=== PATIENT | male | born 1990 | race Caucasian/White ===

== ENCOUNTER 2023-11-08 15:52 | Outpatient (AMB) | payer OTHER, SELFPAY ==
--- NOTE | 2023-11-08 15:54 | A.OFFPC_ITS ---
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 Accompanied by: Self / Same As Patient Allergies amoxicillin Allergy (Unknown, Verified 11/08/23 16:57) sweats bupropion [From Wellbutrin] Allergy (Unknown, Verified 11/08/23 16:57) dizzy Medication List - Last Reconciled 11/08/23 by Patrice Ashley PA-C venlafaxine ER 150 mg PO DAILY 90 days Tobacco use date assessed: 11/08/23 Dental Screening Dental Screen Date: 11/08/23 Did you have a dental visit in the last 12 months?: No Did you have a dental problem in the last 6 months where you did not have access to dental care?: Yes Was dental information given to patient?: Yes HPI pe HPI Details Patient is a 33-year-old male here today for routine annual physical. Patient's past medical history significant for generalized anxiety disorder , tobacco use disorder allergic rhinitis, obesity. .. TIM: Anxiety has been alot better since taking venlafaxine. He reports he has drastically reduced the amount of energy drinks he has been drinking lately. .. Alcohol use disorder: He admits to drinking excessive amount of alcohol in the afternoons. He admits to 16-18 nips per day. He does admit to a family history of alcoholism. He reports he has stopped drinking for few weeks recently and did not experience any seizure-like activity or major withdrawal symptoms He is interested in weaning the amount of drinking he is doing an eventually stopped drinking. PLAN: Will start naltrexone and reduce slowly the amount of drinking he is doing. .. Tobacco use disorder: Has been smoking about a pack of cigarettes per day and understands he does need to quit. He is interested in starting nicotine gum to help him with nicotine cravings. .. Vaccines: Up-to-date with pneumonia and tetanus, does not usually get flu vaccines. Laboratory Tests 08/08/19 08/18/19 09:05 09:30 RBC 4.52 L Hgb 16.0 MCV 101.6 H Potassium 5.3 H Fasting Glucose 120 H Triglycerides 103 LDL Cholesterol, C alc 88 PFSH Surgical History No pertinent past surgical history Family History Father Depression with anxiety Hypertension Mother Multiple sclerosis Maternal Grandmother Cancer Maternal Grandfather Colon cancer Paternal Grandfather Stroke Social History (Updated 11/08/23 @ 17:01 by Patrice Ashley PA-C) Housing: House Alcohol intake: current Alcohol intake frequency: a few times a month Alcohol type: beer Patient Tobacco Use Status: Current everyday Tobacco user Tobacco use type: Cigarette Cigarette Packs Per Day: 1 Cigarettes Per Day: 15 e-Cigarette/Vaping Use: Never Used Substance Use Type: Marijuana service: No Current occupational status: unemployed Cognitive needs: No Hearing needs: No Vision needs: No Questionnaire PHQ-9 Over the last 2 weeks, how often have you been bothered by any of the following problems? 1. Little interest or pleasure in doing things: several days 2. Feeling down, depressed, or hopeless: several days 3. Trouble falling or staying asleep, or sleeping too much: nearly every day 4. Feeling tired or having little energy: more than half the days 5. Poor appetite or overeating: more than half the days 6. Feeling bad about yourself - or that you are a failure or have let yourself or your family down: more than half the days 7. Trouble concentrating on things, such as reading the newspaper or watching television: several days 8. Moving or speaking so slowly that other people could have noticed. Or the opposite - being so fidgety or restless that you have been moving around a lot more than usual: not at all 9. Thoughts that you would be better off or of hurting yourself in some way: not at all Total score: 12 Depression Screening Interpretation: Positive Depression Screening Follow-up: Existing condition and Declines treatment Depression Screening Done: Yes 44445 - PHQ-9 Billing: Yes Source: Developed by Drs. Terrance Gomez, Shital Wright, Kevin Cueva and colleagues, with an educational kimber from [employer]. Thrive Questionnaire Date Thrive assessed: 11/08/23 I am a: Patient What is your living situation today?: I have a steady place to live Within the past 12 months, did the food you bought not last and you didn't have the money to get more?: Never true Within the past 12 months, did you worry whether your food would run out before you got money to buy more?: Never true Do you have trouble paying for medicines?: No Do you have trouble getting transportation to medical appointments?: No Do you have trouble paying your heating and electricity bill?: No Do you have trouble taking care of your child, family member or friend?: No Do you have trouble with day-to-day activities such as bathing, preparing meals, shopping, managing finances, etc.?: No Are you currently unemployed and looking for a job?: No Are you interested in more education?: No Please select the resources that you would like help with: None Currently or been in a relationship where the following occur: No concerns reported THRIVE Score: 0 AUDIT C Alcohol Use Questionnaire (AUDIT-C) 1. How often do you have a drink containing alcohol?: 4 or more times a week 2. How many drinks containing alcohol do you have on a typical day when you are drinking?: 10 or more 3. How often do you have six or more drinks on one occasion?: Daily or almost daily Total Score: 12 TIM-7 AMB Questionnaire TIM-7 Date TIM - 7 assessed: 11/08/23 Feeling nervous, anxious, or on edge: 1 = Several days Not being able to stop or control worryin = More than half the days Worrying too much about different things: 2 = More than half the days Trouble relaxin = Several days Being so restless that it is hard to sit still: 1 = Several days Becoming easily annoyed or irritable: 2 = More than half the days Feeling afraid as if something awful might happen: 0 = Not at all Total TIM-7 score (0-4 normal; 5-9 mild; 10-14 moderate; 15-21 severe): 9 Source: Developed by Drs. Terrance Gomez, Shital Wright, Kevin Cueva and colleagues, with an educational kimber from [employer] TIM-7 Assessment Billing TIM-7 Assessment Tool: TIM-7 Assessment 16686 Review of Systems Const Denies body aches, Denies chills, Denies excessive sweating, Denies fatigue, Denies fever(s) and Denies headache(s) Eyes Denies blurry vision ENT Denies dysphagia, Denies vertigo, Denies dizziness, Denies headache(s), Denies hearing loss and Denies tinnitus Card Denies chest pain, Denies chest pain with activity, Denies syncope, Denies irregular heart rhythm and Denies dyspnea Resp Denies chest congestion, Denies cough, Denies hemoptysis, Denies dyspnea and Denies wheezing GI Denies abdominal pain, Denies melena, Denies hematochezia, Denies coffee ground emesis, Denies dysphagia, Denies diarrhea, Denies nausea and Denies vomiting Denies difficulty urinating, Denies dysuria, Denies urinary frequency, Denies urinary hesitancy and Denies urinary urgency Musc Denies arthralgias, Denies limited range of motion, Denies muscle cramps and Denies muscle weakness Skin/Breast Denies rash and Denies skin ulcer Neuro Denies Abnormal speech present, Denies confusion, Denies vertigo, Denies dizziness, Denies syncope, Denies headache(s), Denies memory loss and Denies s eizure-like activity Psych Denies anxiety, Denies confusion, Denies depression, Denies memory loss, Denies panic attacks and Denies paranoia Endo Denies excessive sweating, Denies fatigue, Denies flushing, Denies polydipsia and Denies polyuria Aller/Immun Denies wheezing Physical exam (Primary Care) Vital Signs: Last Vital Signs Pulse 98 11/08/23 16:22 BP 126/76 11/08/23 16:22 Pulse Ox 98 11/08/23 16:22 Oxygen Delivery Method Room Air 11/08/23 16:22 BMI result Body Mass Index 38.3 Tobacco/Smoking Status: Tobacco use Status Tobacco use date assessed 11/08/23 11/08/23 16:34 Patient Tobacco Use Status Current everyday Tobacco 11/08/23 17:01 Tobacco use type Cigarette 11/08/23 17:01 e-Cigarette/Vaping Use Never Used 11/08/23 17:01 Are you ready to quit: Yes Tobacco cessation counseling provided: Yes Items discussed: Nicotine replacement Relapse Prevention: discussed the importance of a supportive environment, discussed negative mood or depression after quitting, weight gain after smoking is common and discussed dietary, exercise and/or lifestyle changes Number of minutes spent counselin CPT code: 47572 - 4-10 Minutes PHQ-9: PHQ-9 Score PHQ-9: Total score 12 11/08/23 17:04 Depression Screening Interpretation: Positive Depression Screening Follow-up: Existing condition and Declines treatment Thrive Assessment: Date of Thrive Assessment Date Thrive assessed 11/08/23 11/08/23 16:34 Currently or been in a relationship where the following occur: No concerns reported Const General: cooperative, comfortable, no acute distress, alert and awake; No confusion Orientation/consciousness: oriented to person, oriented to place, patient oriented x3 and No confusion HENMT Other: VERY POOR DENTITION Head: Yes normocephalic Ears: external ears normal and TM's normal bilaterally Face and sinus: No sinus tenderness Mouth: Normal oral and palatal mucosa present and tongue normal Teeth and gingiva: dentition normal and gingiva normal Throat: Yes posterior oropharynx normal, Yes tonsils normal and Yes uvula midline Eyes Conjunctivae: conjunctivae normal Sclerae: sclerae normal Pupils: Equal, round and reactive pupils present EOM: EOMs intact bilaterally Direct Ophthalmoscopy: No no photophobia Neck Neck: Yes no lymphadenopathy, No tender and Yes no JVD Thyroid: Thyroid normal Carotids: no bruits Chest Chest palpation & inspection: no tenderness Resp Effort & Inspection: normal respiratory effort, no audible wheezes, not labored and no stridor Auscultation: no crackles, no rales, no rhonchi and no wheezes Cardio Jugular venous distension: no JVD Rate: regular rate, not bradycardic and not tachycardic Rhythm: regular rhythm Bruits: no carotid bruits Peripheral pulses: Peripheral pulses 2+ throughout GI Inspection: Yes normal to inspection, No abdominal wall ecchymosis and No visible herniation Palpation (GI): Soft to palpation, nontender, no guarding, not rigid and No hepatosplenomegaly present Auscultation: normoactive bowel sounds General: Yes no CVA tenderness Back/Spine/Pelvis Back: no CVA tenderness and No back tenderness Cervical Spine: cervical ROM normal Thoracic/Lumbar Spine: thoracic and lumbar spine normal to inspection, straight leg raise negative bilaterally, No thoraco-lumbar ROM limited and No lumbar spinal tenderness Skin Lesions: no lesions Rashes: no rashes Wounds: no wounds Neuro General: oriented to person, oriented to place, patient oriented x3, CN's II-XI intact bilaterally and No confusion Cranial nerves: Yes Equal, round and reactive pupils present and Yes Normal accommodation reflex present Cognition (Neuro): normal cognition Speech: No Abnormal speech present Gait exam (Neuro): Normal gait present Motor exam (neuro): 5/5 motor strength present throughout Extrem Right upper extremity: full ROM; no cyanosis Left upper extremity: full ROM; no cyanosis Right lower extremity: no edema Left lower extremity: no edema Psych Appearance: grossly normal Mental Status: mental status grossly normal Affect: normal affect Attitude: cooperative Thought process: Normal thought process present Assessment and Plan Assessment & Plan (1) Annual physical exam: Code(s): Z00.00 - Encounter for general adult medical examination without abnormal findings (2) Screening for diabetes mellitus (DM): Code(s): Z13.1 - Encounter for screening for diabetes mellitus (3) Smoker: Code(s): F17.200 - Nicotine dependence, unspecified, uncomplicated Plan: Spent 4 minutes discussing smoke cessation today in office. He does understand he needs to quit smoking and is willing to trial nicotine gum to help reduce his smoking cravings. (4) Impaired glucose metabolism: Code(s): R73.09 - Other abnormal glucose Plan: Most recent fasting blood sugar elevated, A1c appropriate. Will continue to follow fasting blood sugar and A1c. Again advised weight reduction and better e ating habits and reduction of energy drink consumption. (5) Alcohol dependence: Code(s): F10.20 - Alcohol dependence, uncomplicated Qualifiers: Substance use status: uncomplicated Qualified Code(s): F10.20 - Alcohol dependence, uncomplicated Plan: As per HPI patient does admit to drinking excessively. He does admit to consuming 16-18 nips per night. He is willing to try medication to help him with alcohol cravings and to quit alcohol altogether. He will slowly reduce the amount of alcohol he is consuming. We did discuss the possibility of referral to addiction treatment though would like to hold off on this for now and see if he can stop drinking on his own. (6) Anxiety: Code(s): F41.9 - Anxiety disorder, unspecified Plan: Patient's TIM-7 score positive for anxiety which has been existing condition for him. He feels the venlafaxine at current dose has been effective for him. He is not interested in mental health therapist or psychiatrist at this time. (7) MDD (major depressive disorder), recurrent episode, moderate: Code(s): F33.1 - Major depressive disorder, recurrent, moderate Plan: Patient's PHQ-9 score positive for depression which has been existing condition for him. Continues on SNRI with good effect. He is not interested in mental health therapy or psychiatry at this time. Unfortunately has been drinking excessively as part of a habit and boredom per patient. He will like to try a new medication to help him quit drinking. Orders: Orders 2 [facility] [place]. Panel Fast 11/08/23 R73.09 - Other abnormal glucose Complete Blood Count no Diff 11/08/23 F10.20 - Alcohol dependence, uncomp licated Ethanol 11/08/23 F10.20 - Alcohol dependence, uncomplicated Hemoglobin A1c 11/08/23 R73.09 - Other abnormal glucose Medications: New naltrexone 50 mg PO DAILY 30 tabs 3RF 30 days F10.20 - Alcohol dependence, uncomplicated nicotine (polacrilex) 2 mg buccal Q2H PRN 110 ea 0RF nicotine cravings 15 days F17.200 - Nicotine dependence, unspecified, uncomplicated Coding Level of Care Code Est Pt Prev Care 18-39y(07024) Diagnoses Annual physical exam Z00.00 Screening for diabetes mellitus (DM) Z13.1 Smoker F17.200 Impaired glucose metabolism R73.09 Uncomplicated alcohol dependence F10.20 Substance use status: uncomplicated Anxiety F41.9 MDD (major depressive disorder), recurrent episode, moderate F33.1 Additional Codes TIM-7 Assessment Billing - TIM-7 Assessment Tool: TIM-7 Assessment 34515 ([id number]) Vital Signs *Quality* - CPT code: 73523 - 4-10 Minutes ([id number])
[2023-11-08 16:22] VITALS: BP 126/76; PULSE 98; O2SAT 98; BMI 38.3
== END 2023-11-08 17:14 | disposition home or self-care (01) ==
PROVIDERS: PCP Physician Assistant; Visit Provider Physician Assistant
DX: Z00.00 Encounter for general adult medical examination without abnormal findings (principal); F10.20 Alcohol dependence, uncomplicated; F33.1 Major depressive disorder, recurrent, moderate; Z13.1 Encounter for screening for diabetes mellitus; F17.210 Nicotine dependence, cigarettes, uncomplicated; R73.09 Other abnormal glucose; F41.9 Anxiety disorder, unspecified
CPT/HCPCS: 99395; 99406

== ENCOUNTER 2024-11-14 15:55 | Outpatient (AMB) | payer OTHER, SELFPAY ==
--- NOTE | 2024-11-14 15:58 | A.OFFPC_ITS ---
Vital Signs 11/14/24 16:01 Height 5 ft 8 in Weight 264 lb BMI 40.1 BP 110/54 L Blood Pressure Location Lt brachial Position Sitting Pulse 97 Pulse Source Pulse Oximeter Temp 97.1 F Temp Source Temporal Artery Scan Pulse Oximetry (%) 99 Oxygen Delivery Method Room Air Intake Visit Reasons: PE [employer]ter Required: No Accompanied by: Self / Same As Patient Allergies amoxicillin Allergy (Unknown, Verified 11/14/24 16:00) sweats bupropion (From Wellbutrin) Allergy (Unknown, Verified 11/14/24 16:00) dizzy Tobacco use date assessed: 11/14/24 Dental Screening Dental Screen Date: 11/14/24 Did you have a dental visit in the last 12 months?: No Did you have a dental problem in the last 6 months where you did not have access to dental care?: No Was dental information given to patient?: No HPI PE HPI Details The patient is a 34-year-old male presenting for a annual physical and management of alcohol use disorder. Alcohol dependency: He reports consuming 15 to 20 nips of alcohol daily, which has become unmanageable, and has attempted to wean off alcohol without success. There is concern about potential withdrawal symptoms, including seizures, due to a family history of seizures in his mother. The patient has been prescribed naltrexone previously but discontinued it due to continued alcohol consumption and concerns about its effectiveness. He experiences significant hand tremors and anxiety, for which hydroxyzine and clonidine have been suggested as comfort medications. Class 3 obesity: The patient has gained 12 pounds since his last visit, with a current weight of 264 pounds. His blood pressure is noted to be on the lower end, and his heart rate is 97 bpm. The patient has a history of nicotine dependence and is currently trying to quit smoking using nicotine gum and vaping. He is still smoking, and the use of nicotine replacement therapy, such as patches, has been discussed. [facility] Surgical History No pertinent past surgical history Family History Father Depression with anxiety Hypertension Mother Multiple sclerosis Maternal Grandmother Cancer Maternal Grandfather Colon cancer Paternal Grandfather Stroke Social History (Updated 11/14/24 @ 16:47 by Patrice Ashley PA-C) Housing: House Alcohol intake: current Alcohol intake frequency: a few times a month Alcohol type: beer Patient Tobacco Use Status: Current everyday Tobacco user Tobacco use type: Cigarette Cigarette Packs Per Day: 1 Cigarettes Per Day: 15 e-Cigarette/Vaping Use: Never Used Substance Use Type: Marijuana service: No Current occupational status: unemployed Cognitive needs: No Hearing needs: No Vision needs: No Questionnaire PHQ-9 Over the last 2 weeks, how often have you been bothered by any of the following problems? 1. Little interest or pleasure in doing things: several days 2. Feeling down, depressed, or hopeless: several days 3. Trouble falling or staying asleep, or sleeping too much: nearly every day 4. Feeling tired or having little energy: more than half the days 5. Poor appetite or overeating: several days 6. Feeling bad about yourself - or that you are a failure or have let yourself or your family down: not at all 7. Trouble concentrating on things, such as reading the newspaper or watching television: several days 8. Moving or speaking so slowly that other people could have noticed. Or the opposite - being so fidgety or restless that you have been moving around a lot more than usual: not at all 9. Thoughts that you would be better off or of hurting yourself in some way: not at all Total score: 9 Depression Screening Interpretation: Positive Depression Screening Follow-up: Existing condition and Declines treatment Depression Screening Done: Yes 69111 - PHQ-9 Billing: Yes Source: Developed by Drs. Terrance Gomez, Shital Wright, Kevin Cueva and colleagues, with an educational kimber from [employer]. Thrive Questionnaire Date Thrive assessed: 11/14/24 I am a: Patient What is your living situation today?: I have a steady place to live Within the past 12 months, did the food you bought not last and you didn't have the money to get more?: Never true Within the past 12 months, did you worry whether your food would run out before you got money to buy more?: Never true Do you have trouble paying for medicines?: No Do you have trouble getting transportation to medical appointments?: No Do you have trouble paying your heating and electricity bill?: No Do you have trouble taking care of your child, family member or friend?: No Do you have trouble with day-to-day activities such as bathing, preparing meals, shopping, managing finances, etc.?: No Are you currently unemployed and looking for a job?: Yes Are you interested in more education?: No Please select the resources that you would like help with: None Currently or been in a relationship where the following occur: No concerns reported THRIVE Score: 0 AUDIT C Alcohol Use Questionnaire (AUDIT-C) 1. How often do you have a drink containing alcohol?: 4 or more times a week 2. How many drinks containing alcohol do you have on a typical day when you are drinking?: 10 or more 3. How often do you have six or more drinks on one occasion?: Daily or almost daily Total Score: 12 TIM-7 AMB Questionnaire TIM-7 Date TIM - 7 assessed: 11/14/24 Feeling nervous, anxious, or on edge: 2 = More than half the days Not being able to stop or control worryin = Nearly every day Worrying too much about different things: 3 = Nearly every day Trouble relaxin = Nearly every day Being so restless that it is hard to sit still: 2 = More than half the days Becoming easily annoyed or irritable: 3 = Nearly every day Feeling afraid as if something awful might happen: 1 = Several days Total TIM-7 score (0-4 normal; 5-9 mild; 10-14 moderate; 15-21 severe): 17 Source: Developed by Drs. Terrance Gomez, Shital Wright, Kevin Cueva and colleagues, with an educational kimber from [employer]. TIM-7 Assessment Billing TIM-7 Assessment Tool: TIM-7 Assessment 88804 Review of Systems Const Denies body aches, Denies chills, Denies excessive sweating, Denies fatigue, Denies fever(s) and Denies headache(s) Eyes Denies blurry vision ENT Denies dysphagia, Denies vertigo, Denies dizziness, Denies headache(s), Denies hearing loss and Denies tinnitus Card Denies chest pain, Denies chest pain with activity, Denies syncope, Denies irregular heart rhythm and Denies dyspnea Resp Denies chest congestion, Denies cough, Denies hemoptysis, Denies dyspnea and Denies wheezing GI Denies abdominal pain, Denies melena, Denies hematochezia, Denies coffee ground emesis, Denies dysphagia, Denies diarrhea, Denies nausea and Denies vomiting Denies difficulty urinating, Denies dysuria, Denies urinary frequency, Denies urinary hesitancy and Denies urinary urgency Musc Denies arthralgias, Denies limited range of motion, Denies muscle cramps and Denies muscle weakness Skin/Breast Denies rash and Denies skin ulcer Neuro Denies Abnormal speech present, Denies confusion, Denies vertigo, Denies dizziness, Denies syncope, Denies headache(s), Denies memory loss and Denies seizure-like activity Psych Denies anxiety, Denies confusion, Denies depression, Denies memory loss, Denies panic attacks and Denies paranoia Endo Denies excessive sweating, Denies fatigue, Denies flushing, Denies polydipsia and Denies polyuria Aller/Immun Denies wheezing Physical exam (Primary Care) Vital Signs: Last Vital Signs Temp 97.1 F 11/14/24 16:01 Pulse 97 11/14/24 16:01 BP 110/54 L 11/14/24 16:01 Pulse Ox 99 11/14/24 16:01 Oxygen Delivery Method Room Air 11/14/24 16:01 BMI result Body Mass Index 40.1 BMI Assessment/Plan discussion: High BMI High, discussed plan: lifestyle, weight reduction, dietary and physical activity Tobacco/Smoking Status: Tobacco use Status Tobacco use date assessed 11/14/24 11/14/24 16:05 Patient Tobacco Use Status Current everyday Tobacco 11/14/24 16:47 Tobacco use type Cigarette 11/14/24 16:47 e-Cigarette/Vaping Use Never Used 11/14/24 16:47 Are you ready to quit: No Tobacco cessation counseling provided: Yes Items discussed: Nicotine replacement Relapse Prevention: discussed the importance of a supportive environment, discussed negative mood or depression after quitting, weight gain after smoking is common and discussed dietary, exercise and/or lifestyle changes Number of minutes spent counselin CPT code: 01157 - 4-10 Minutes PHQ-9: PHQ-9 Score PHQ-9: Total score 9 11/14/24 16:43 Depression Screening Interpretation: Positive Depression Screening Follow-up: E xisting condition and Declines treatment Thrive Assessment: Date of Thrive Assessment Date Thrive assessed 11/14/24 11/14/24 16:05 Currently or been in a relationship where the following occur: No concerns reported Const General: cooperative, comfortable, no acute distress, alert and awake; No confusion Orientation/consciousness: oriented to person, oriented to place, patient oriented x3 and No confusion HENMT Head: Yes normocephalic Ears: external ears normal and TM's normal bilaterally Face and sinus: No sinus tenderness Mouth: Normal oral and palatal mucosa present and tongue normal Teeth and gingiva: dentition normal and gingiva normal Throat: Yes posterior oropharynx normal, Yes tonsils normal and Yes uvula midline Eyes Conjunctivae: conjunctivae normal Sclerae: sclerae normal Pupils: Equal, round and reactive pupils present EOM: EOMs intact bilaterally Direct Ophthalmoscopy: No no photophobia Neck Neck: Yes no lymphadenopathy, No tender and Yes no JVD Thyroid: Thyroid normal Carotids: no bruits Chest Chest palpation & inspection: no tenderness Resp Effort & Inspection: normal respiratory effort, no audible wheezes, not labored and no stridor Auscultation: no crackles, no rales, no rhonchi and no wheezes Cardio Jugular venous distension: no JVD Rate: regular rate, not bradycardic and not tachycardic Rhythm: regular rhythm Bruits: no carotid bruits Peripheral pulses: Peripheral pulses 2+ throughout GI Inspection: Yes normal to inspection, No abdominal wall ecchymosis and No visible herniation Palpation (GI): Soft to palpation, nontender, no guarding, not rigid and No hepatosplenomegaly present Auscultation: normoactive bowel sounds General: Yes no CVA tenderness Back/Spine/Pelvis Back: no CVA tenderness and No back tenderness Cervical Spine: cervical ROM normal Thoracic/Lumbar Spine: thoracic and lumbar spine normal to inspection, straight leg raise negative bilaterally, No thoraco-lumbar ROM limited and No lumbar spinal tenderness Skin Lesions: no lesions Rashes: no rashes Wounds: no wounds Neuro General: oriented to person, oriented to place, patient oriented x3, CN's II-XI intact bilaterally and No confusion Cranial nerves: Yes Equal, round and reactive pupils present and Yes Normal accommodation reflex present Cognition (Neuro): normal cognition Speech: No Abnormal speech present Gait exam (Neuro): Normal gait present Motor exam (neuro): 5/5 motor strength present throughout Extrem Right upper extremity: full ROM; no cyanosis Left upper extremity: full ROM; no cyanosis Right lower extremity: no edema Left lower extremity: no edema Psych Appearance: grossly normal Mental Status: mental status grossly normal Affect: normal affect Attitude: cooperative Thought process: Normal thought process present Results AMB Hemoglobin A1c AMB Hemoglobin A1c 5.5 % Last Edit by Dominique Overton CMA on 11/14/24 16:36 Results Reviewed Results Reviewed: Laboratory Last Values Hgb A1c (Clinic) 5.5 % (4.0-6.0) 11/14/24 16:19 Coding Level of Care Code Est Pt Prev Care [id number]([id number]) Diagnoses Annual physical exam Z00.00 Uncomplicated alcohol dependence F10.20 Substance use status: uncomplicated MDD (major depressive disorder), recurrent episode, moderate F33.1 Tobacco dependence due to cigarettes F17.210 Class 3 obesity E66.813 Anxiety F41.9 Impaired glucose metabolism R73.09 Additional Codes TIM-7 Assessment Billing - TIM-7 Assessment Tool: TIM-7 Assessment 14887 ([id number]) PHQ-9 - 56160 - PHQ-9 Billing: Yes ([id number]) Vital Signs *Quality* - CPT code: 50896 - 4-10 Minutes ([id number]) Assessment & Plan Assessment & Plan (1) Annual physical exam: Code(s): Z00.00 - Encounter for general adult medical examination without abnormal findings Category: Medical Plan: As per HPI (2) Alcohol dependence: Code(s): F10.20 - Alcohol dependence, uncomplicated Category: Medical Qualifiers: Substance use status: uncomplicated Qualified Code(s): F10.20 - Alcohol dependence, uncomplicated Plan: The patient is advised to consider inpatient detoxification due to high daily alcohol intake and concerns about withdrawal symptoms, including seizures. Comfort medications such as hydroxyzine and clonidine are suggested for anxiety and tremors. Naltrexone can be reconsidered once alcohol consumption is reduced. (3) MDD (major depressive disorder), recurrent episode, moderate: Code(s): F33.1 - Major depressive disorder, recurrent, moderate Category: Medical Plan: Patient's PHQ-9 score positive for depression which has been existing condition for him. He continues on SNRI therapy with good effect. Again does not want to speak with a mental health therapist at this time. He is also using alcohol as a coping mechanism as well (4) Tobacco dependence due to cigarettes: Code(s): F17.210 - Nicotine dependence, cigarettes, uncomplicated Category: Medical Plan: The patient is encouraged to continue using nicotine gum and vaping as cessation aids. Consideration of nicotine patches as an additional aid is discussed. (5) Class 3 obesity: Code(s): E66.813 - Obesity, class 3 Category: Medical Plan: Patient does understand his BMI is over 40 and will try to work on being more physically active and a reduce his alcohol intake (6) Anxiety: Code(s): F41.9 - Anxiety disorder, unspecified Category: Medical Plan: Patient's TIM-7 score positive for anxiety which has been existing condition for him. He continues on venlafaxine and clonidine which has been helpful for his anxiety. He is not interested in talking to a mental health therapist at this time. (7) Impaired glucose metabolism: Code(s): R73.09 - Other abnormal glucose Category: Medical Plan: Patient has a history of elevated fasting blood sugar though recent A1c stable. Will continue to follow fasting blood sugars and advised on low carbohydrate diet. Orders: Orders AMB Hemoglobin A1c 11/14/24 Z13.9 - Encounter for screening, unspecified Comprehensive [place]. Panel Fast 11/14/24 R73.09 - Other abnormal glucose Complete Blood Count no Diff 11/14/24 R73.09 - Other abnormal glucose Referrals Addiction Medicine Referral F10.20 - Alcohol dependence, uncomplicated Medications: New hydroxyzine HCl 25 mg PO BID 60 tabs 1RF 30 days F10.20 - Alcohol dependence, uncomplicated clonidine HCl 0.2 mg PO BID 60 tabs 0RF 30 days F10.20 - Alcohol dependence, uncomplicated
[2024-11-14 16:01] VITALS: BP 110/54; PULSE 97; TEMP 36.2; O2SAT 99; BMI 40.1
== END 2024-11-14 16:58 | disposition home or self-care (01) ==
LOC: HO.HMCH 15:56
PROVIDERS: PCP Physician Assistant; Visit Provider Physician Assistant
DX: Z00.00 Encounter for general adult medical examination without abnormal findings (principal); F10.20 Alcohol dependence, uncomplicated; F33.1 Major depressive disorder, recurrent, moderate; F17.210 Nicotine dependence, cigarettes, uncomplicated; E66.813 Obesity, class 3; F41.9 Anxiety disorder, unspecified; R73.09 Other abnormal glucose

== ENCOUNTER → 2024-11-14 15:55 | Outpatient (BNVA) | payer OTHER, SELFPAY | PROVIDERS: PCP Physician Assistant; Visit Provider Physician Assistant | DX: Z00.00 Encounter for general adult medical examination without abnormal findings (principal); F10.20 Alcohol dependence, uncomplicated; F33.1 Major depressive disorder, recurrent, moderate; E66.813 Obesity, class 3; Z68.41 Body mass index [BMI] 40.0-44.9, adult; F41.9 Anxiety disorder, unspecified; R73.09 Other abnormal glucose; F17.210 Nicotine dependence, cigarettes, uncomplicated; Z13.31 Encounter for screening for depression; Z13.39 Encounter for screening examination for other mental health and behavioral disorders | CPT/HCPCS: 83036; 96127; 99395 ==